=== PATIENT | female | born 1985 | race Caucasian/White ===

== ENCOUNTER 2025-05-23 08:13 | Day surgery (SDC) | payer MEDICAID, SELFPAY ==
--- NOTE | 2025-05-18 06:54 | EXP.HP ---
History of Present Illness *Admission Date: 05/23/25 *History of present illness: Mrs. Ruiz is a 39-year-old female who is here for diagnostic EGD. The patient reports 2 recent episodes of nausea, bilious vomiting and diarrhea that occurred a couple of months ago. This has increased in frequency. In the meantime, she reports no significant issues. She reports no abdominal pain. She does have some discomfort during these bouts of nausea, vomiting and diarrhea. She also has vagal symptoms with diaphoresis and lightheadedness with sweats. The patient has noted more constipation/incomplete bowel evacuation recently. She also has had increased stress. The patient presently notes that she gets this foul sulfur taste when she has the emesis. The patient did have EGD and colonoscopy performed in June 2019 because of her iron deficiency anemia, belching, dysphagia and globus sensation. Her EGD showed some cricopharyngeal spasm as well as bile reflux with minimal antral gastropathy and mild esophageal dysmotility. Her colonoscopy revealed a single benign sigmoid polyp (hyperplastic polyp) which was removed. The examination is deemed medically necessary for diagnostic EGD. The patient has been seen, interviewed and examined prior to the procedure by both myself and the anesthesia provider. [facility] Disclaimer: The information contained in this section may have been updated after the patient was seen, as this information can be updated by other users. Medical History Endometriosis TIA (transient ischemic attack) SVT (supraventricular tachycardia) Iron deficiency Surgical History History of delivery Family History Father Melanoma Diabetes Mother Melanoma Heart problem Grandmother Cancer Social History (Updated 05/23/25 @ 09:22 by Jorge Rucker CRNA) Smoking Status: Never smoker alcohol intake: never substance use type: denies use current occupational status: employed Travel in the last 8 weeks?: None Have you lived/traveled outside [place] in past 30 days?: No Contact w/someone who lives/traveled outside [place] past 30 days?: No Exposure to someone with infectious disease in past 14 days?: No Do you have a fever (greater than 100.4 F or 38 C)?: No Have you tested positive for COVID-19?: No Exposed to someone with COVID-19 in past 14 days?: No Do you have a sore throat?: No Do you have a cough?: No Do you have any weakness?: No Do you have any diarrhea?: No Are you experiencing any unusual bleeding?: No Do you have any muscle aches/pain?: No Do you have any abdominal pain?: No Are you experiencing loss of taste or smell?: No Review of Systems Review of Systems Review of systems (narrative): Negative *Cardiovascular Comments: Negative *Gastrointestinal Comments: Negative *Genitourinary Comments: Negative *Musculoskeletal Comments: Negative *Neurologic Comments: Negative Meds Home Medications and Allergies Home Medications ?Medication ?Instructions ?Recorded ?Confirmed ?Type iron,carbonyl 65 mg-vitamin C 125 2 tab PO DAILY 03/12/25 05/23/25 History mg tablet,delayed release (Vitron-C) levonorgestrel (Mirena) 1 device intrauterine CONT 03/12/25 05/23/25 History New Prescriptions to Start Prescriptions: Allergies Allergy/AdvReac Type Severity Reaction Status Date / Time ondansetron Allergy Severe Rash Verified 05/23/25 09:06 Exam *Routine HEENT Exam Head: Present normocephalic Eye: Present EOMI and PERRL ENT: Present mucous membranes moist *Routine Neck Exam Neck: Present supple *Routine Respiratory Exam Respiratory: Present CTA bilaterally *Routine Cardiovascular Exam Cardiovascular: Present RRR *Routine Abdominal Exam Abdominal: Present soft and normoactive bowel sounds; Absent tenderness *Routine Rectal Exam Rectal:: deferred *Routine Genitalia Exam Genitalia:: deferred *Routine Extremities Exam Extremities: Absent cyanosis, clubbing or edema *Routine Skin Exam Skin: Present warm; Absent rash *Routine Neurological Exam Neurological: Present alert and oriented X3 Assessment and Plan *Assessment and plan (1) Intermittent vomiting: Status: Acute Category: Medical Code(s): R11.10 - Vomiting, unspecified (2) Iron deficiency: Status: Acute Category: Medical Code(s): E61.1 - Iron deficiency (3) Vasovagal symptom: Status: Acute Category: Medical Code(s): R55 - Syncope and collapse (4) Obstipation: Status: Acute Category: Medical Code(s): K59.00 - Constipation, unspecified (5) Nausea and vomiting: Status: Acute Category: Medical Code(s): R11.2 - Nausea with vomiting, unspecified Plan A/P: 1. Nausea and vomiting with vasovagal symptoms and history of iron deficiency is the preprocedural diagnosis. The patient will be anesthetized/sedated using MAC sedation. The patient has been seen and examined. Cardiac and lung assessment prior to the examination is stable. Proceed with planned diagnostic EGD.
[2025-05-21 15:33] VITALS: BMI 29.0
--- NOTE | 2025-05-23 06:53 | HMH.PROCNOTE ---
[facility] Procedure Note Date: 05/23/25 Time: 10:16 Procedure Note:: Upper Endoscopy Procedure Report: Esophagogastroduodenoscopy with cold biopsies Endoscopost: Chele Robin II, MD Referring Physician: Ethan Isbell PA-C, [id number] [facility] [address] [facility] [place] [address] Date of Procedure: May 23, 2025 Equipment: Olympus GIF-1100 standard upper endoscope Sedation: MAC sedation Indications: Mrs. Ruiz is a 39-year-old female who is here for diagnostic EGD. The patient has had episodic nausea and vomiting. Her last was 2 weeks ago. In the office, she had reported 2 recent episodes of nausea, bilious vomiting and diarrhea that occurred just a few months ago. This has increased in frequency. In the meantime, she reports no significant issues. She reports no abdominal pain. She does have some discomfort during these bouts of nausea, vomiting and diarrhea. She also has vagal symptoms with diaphoresis and lightheadedness with sweats. The patient has noted more constipation/incomplete bowel evacuation recently. She also has had increased stress. The patient presently notes that she gets this foul sulfur taste when she has the emesis. The patient did have EGD and colonoscopy performed in June 2019 because of her iron deficiency anemia, belching, dysphagia and globus sensation. Her EGD showed some cricopharyngeal spasm as well as bile reflux with minimal antral gastropathy and mild esophageal dysmotility. Her colonoscopy revealed a single benign sigmoid polyp (hyperplastic polyp) which was removed. The examination is deemed medically necessary for diagnostic EGD. Procedure: Prior to the procedure, a history and physical exam was performed, and patient's medications and allergies were reviewed. The risks, benefits and alternatives of the sedation and procedure were discussed with the patient. All questions were answered and informed consent was obtained. The patient was brought to the procedure room. Patient identification and proposed procedure were verified by the physician and the nurse. The patient was placed in a left lateral decubitus position and the scope was passed under direct vision. Throughout the procedure, the patient's blood pressure, pulse, and oxygen saturations were monitored continuously. The upper GI endoscopy was accomplished without difficulty. The patient tolerated the procedure well. Findings: The scope was passed directly into the upper esophagus and advanced to the third portion of the duodenum. The post bulbar duodenum, ampulla and duodenal bulb were normal with normal mucosa and conniventes. 2 cold biopsies were taken from the second portion of the duodenum for the disaccharidase assay. The scope was withdrawn through a normal duodenal bulb and pylorus into the stomach. There was some mild linear reactive gastropathy of the antrum with bile reflux. The body and fundus of the stomach were grossly normal. Upon retroflexion there was no hiatal hernia. 2 cold biopsies were taken from the antrum. The scope was then withdrawn into the esophagus. There was no evidence of reflux esophagitis or Lee's. There were some tertiary contractions and evidence of mild esophageal dysmotility. The remainder of the esophageal mucosa was normal. Impression: 1. Nonerosive GERD with mild esophageal dysmotility 2. Bile reflux with mild linear reactive gastropathy of antrum Plan: The patient is having intermittent severe functional dyspepsia with associated vagal symptoms. This is being driven by gas pressure gradients from colonic fermentation and incomplete bowel evacuation. She will need to remain on a fiber bowel regimen or prucalopride to prevent colonic bacterial overgrowth with resulting intermittent episodic dyspepsia.
[2025-05-23 09:07] VITALS: BP 128/84; PULSE 71; RESP 19; TEMP 36.3; O2SAT 97
[2025-05-23 09:10] LABS: Urine Pregnancy, HCG Qual. Negative (Negative)
[2025-05-23] MEDS: LACTATED RINGERS 1000ML 1,000 ML 50 ML IV (09:12)
--- NOTE | 2025-05-23 09:22 | EXP.ANES.CKL ---
[facility] Disclaimer: The information contained in this section may have been updated after the patient was seen, as this information can be updated by other users. Medical History Endometriosis TIA (transient ischemic attack) SVT (supraventricular tachycardia) Iron deficiency Surgical History History of delivery Family History Father Melanoma Diabetes Mother Melanoma Heart problem Grandmother Cancer Social History Smoking Status: Never smoker alcohol intake: never substance use type: denies use current occupational status: employed Travel in the last 8 weeks?: None [facility] Anesthesia Checklist Patient Identification Patient Identification: Arm Band and Verbal (Name & ) Structural Data Admitted From: Home Planned Operative Procedure/s: EGD Consent for Planned Operative Procedure(s) Verified: Yes Verified Documents: Surgical Consent NPO Status Verified Time NPO: 00:00 Chart Verification Results Verified: HCG Additional verifications Patient : No Anesthesia Reactions: No Airway Assessment Mallampati Score:: Class II C-Spine Mobility Assessed: Yes TMJ Mobility Assessed: Yes Dentition: Good Dentition Neurological Assessment Level of Consciousness: Awake, Alert and Appropriate Hx Seizures: No Numbness or tingling in extremities: No Anesthesia Plan Anesthesia Risk discussed: Yes Anesthesia Plan: Verified ASA Class: II Anesthesia Type: MAC
[2025-05-23 10:14] VITALS: BP 103/66; PULSE 78; RESP 20; TEMP 36.2; O2SAT 95
[2025-05-23 10:24] VITALS: BP 112/73; PULSE 64; O2SAT 99
[2025-05-23 10:34] VITALS: BP 108/70; PULSE 57; O2SAT 100
[2025-05-23 10:44] VITALS: BP 114/83; PULSE 60; O2SAT 100
[2025-05-30 12:12] LABS: Interpretation Notes (.); Lactase 15.94 (>/= 14.0); Maltase 89.01 (>/= 110.0); Palatinase 3.99 (>/= 8.5); Reference Notes (.); Sucrase 11.96 (>/= 25.0)
== END 2025-05-23 10:44 | disposition home or self-care (01) ==
PROVIDERS: Visit Provider Internal Medicine Gastroenterology
PROC: 0DJ08ZZ Inspection of Upper Intestinal Tract, Via Natural or Artificial Opening Endoscopic (ICD-10-PCS; CPT 43239; principal; 2025-05-23 10:00)
DX: K21.9 Gastro-esophageal reflux disease without esophagitis (principal); K31.89 Other diseases of stomach and duodenum; Z86.0102 Personal history of hyperplastic colon polyps; K59.00 Constipation, unspecified; R15.0 Incomplete defecation; D50.9 Iron deficiency anemia, unspecified; R55 Syncope and collapse; R19.7 Diarrhea, unspecified; Z73.3 Stress, not elsewhere classified
CPT/HCPCS: 43239; 81025; 82657; J2704; J7120